=== PATIENT | male | born 1940 | race Caucasian/White ===

== ENCOUNTER 2021-12-13 09:47 | Emergency (ER) | payer MEDICAID, OTHER ==
[~2021-12-13] VITALS: Ht 175.3 cm; Wt 88.6 kg
[~2021-12-13 09:47] MED LIST: AMLO1TAB25 PO; BUSP5TA PO; COLA100C5 PO; ECOT81TA5 PO; ELIQ2.5T PO; ELIQ5TAB PO; FAMO20TA5 PO; FINA5TAB2 PO; FLUT1BLS5 INH; HYDR-3910 PO; LOSA100T45 PO; MECL-86 PO; METO1TAB33 PO; MIRA1POW3 PO; OXYC1TAB23 PO; REFR0.5D8 OU; ROSU40TA4 PO; SENN18TA PO; SPIR50TA4 PO; TAMS1CAP17 PO; TOVI4TAB PO; VITMTA PO; ZETI10TA16 PO
[2021-12-13] MEDS ORDERED: NS 500 ML IV ONE (10:20)
[2021-12-13 11:52] LABS: BASO % 0.3 % (0.0-1.0); EOS # 0.2 10^3/uL (0.0-0.5); EOS % 2.5 % (0.0-3.0); HEMATOCRIT 42.3 % (42.0-52.0); HEMOGLOBIN 12.6 g/dl (13.5-17.5); LYMPH # 0.9 10^3/uL (1.5-5.0); LYMPH % 14.2 % (24.0-44.0); MEAN CORPUSCULAR HEMOGLOBIN 26.6 pg (27.0-33.0); MEAN CORPUSCULAR HGB CONC 29.8 g/dl (32.0-36.5); MEAN CORPUSCULAR VOLUME 89.2 fl (80.0-96.0); MONO # 0.4 10^3/uL (0.0-0.8); MONO % 6.9 % (2.0-8.0); NEUTROPHILS # 4.8 10^3/uL (1.5-8.5); NEUTROPHILS % 75.8 % (36.0-66.0); PLATELET COUNT, AUTOMATED 199 10^3/uL (150-450); RED BLOOD COUNT 4.74 10^6/uL (4.30-6.10); WHITE BLOOD COUNT 6.4 10^3/uL (4.0-10.0)
[2021-12-13 12:05] LABS: INR 1.21; PROTHROMBIN TIME 15.5 SECONDS (12.5-14.5)
[2021-12-13 12:06] LABS: PARTIAL THROMBOPLASTIN TIME 42.2 SECONDS (24.8-34.2)
[2021-12-13] MEDS ORDERED: DOXYCYCLINE HYCLATE 100MG TABLET PO ONE (12:35)
[2021-12-13] MEDS ORDERED: DOXY-443 PO (13:30)
[2021-12-13 14:57] VITALS: BP 135/81
== END 2021-12-13 14:59 | disposition home or self-care (01) ==
LOC: M ED 09:47
DX: T81.41XA Infection following a procedure, superficial incisional surgical site, initial encounter (principal); L03.116 Cellulitis of left lower limb; Z88.2 Allergy status to sulfonamides; Z88.6 Allergy status to analgesic agent; Z79.01 Long term (current) use of anticoagulants; Z79.82 Long term (current) use of aspirin; Z79.899 Other long term (current) drug therapy

== ENCOUNTER 2022-06-07 10:09 | Emergency (ER) | payer MEDICARE, MEDICAID ==
[~2022-06-07] VITALS: Ht 175.3 cm; Wt 86.5 kg
[~2022-06-07 10:09] MED LIST changes: +DOXY-443 PO; -LOSA100T45 PO; +LOSA100T46 PO
[2022-06-07] MEDS ORDERED: ACET500T15 PO (11:44)
[2022-06-07] MEDS ORDERED: LOSA50TA28 PO (11:44)
[2022-06-07] MEDS ORDERED: ATOR80TA59 PO (11:44)
[2022-06-07] MEDS ORDERED: VENTAER INH (11:44)
[2022-06-07] MEDS ORDERED: RA S0.65 NARES (11:44)
[2022-06-07] MEDS ORDERED: METO200T28 PO (11:44)
[2022-06-07] MEDS ORDERED: ALBU2.5V10 INH (11:44)
[2022-06-07] MEDS ORDERED: CLON-412 PO (11:44)
[2022-06-07] MEDS ORDERED: ATOR40TA75 PO (11:44)
[2022-06-07] MEDS ORDERED: XARE15TA PO (11:44)
[2022-06-07] MEDS ORDERED: COMBAER6 INH (11:44)
[2022-06-07] MEDS ORDERED: HOME MED LIST COMPLETE! XX SCH (11:45)
[2022-06-07] MEDS ORDERED: ACETAMINOPHEN TAB 650MG DOSE (2X325MG) PO ONE (12:10)
[2022-06-07 14:02] VITALS: BP 159/93
== END 2022-06-07 14:15 | disposition home or self-care (01) ==
LOC: M ED 10:09 → EDBD 10:09 → M ED 14:15
DX: S60.221A Contusion of right hand, initial encounter (principal); I10 Essential (primary) hypertension; J44.9 Chronic obstructive pulmonary disease, unspecified; F41.9 Anxiety disorder, unspecified; F07.9 Unspecified personality and behavioral disorder due to known physiological condition; Z86.79 Personal history of other diseases of the circulatory system; Z86.718 Personal history of other venous thrombosis and embolism; Z87.891 Personal history of nicotine dependence; Z88.2 Allergy status to sulfonamides; Z88.5 Allergy status to narcotic agent; Z79.01 Long term (current) use of anticoagulants; Z79.52 Long term (current) use of systemic steroids; Z79.810 Long term (current) use of selective estrogen receptor modulators (SERMs); Z79.899 Other long term (current) drug therapy

== ENCOUNTER 2022-06-13 07:32 | Emergency (ER) | payer MEDICARE, MEDICAID ==
[~2022-06-13] VITALS: Ht 175.3 cm; Wt 87.9 kg
[~2022-06-13 07:32] MED LIST changes: +ACET500T15 PO; +ALBU2.5V10 INH; +ATOR40TA75 PO; +ATOR80TA59 PO; +CLON-412 PO; +COMBAER6 INH; +LOSA50TA28 PO; +METO200T28 PO; +RA S0.65 NARES; +VENTAER INH; +XARE15TA PO
[2022-06-13] MEDS ORDERED: cloNIDine 0.1MG TABLET PO ONE (09:25)
[2022-06-13] MEDS ORDERED: LOSARTAN 50MG TABLET PO ONE (09:25)
[2022-06-13] MEDS ORDERED: METOPROLOL SUCC (TopROL XL) 100MG *XL* TAB PO ONE (09:40)
[2022-06-13 10:03] VITALS: BP 213/110
[2022-06-13 10:30] VITALS: BP 188/95
== END 2022-06-13 10:40 | disposition home or self-care (01) ==
LOC: M ED 07:32
DX: S80.11XA Contusion of right lower leg, initial encounter (principal); I10 Essential (primary) hypertension; J44.9 Chronic obstructive pulmonary disease, unspecified; Z86.79 Personal history of other diseases of the circulatory system; Z87.891 Personal history of nicotine dependence; Z86.718 Personal history of other venous thrombosis and embolism; Z88.2 Allergy status to sulfonamides; Z88.5 Allergy status to narcotic agent; Z79.52 Long term (current) use of systemic steroids; Z79.811 Long term (current) use of aromatase inhibitors; Z79.810 Long term (current) use of selective estrogen receptor modulators (SERMs); Z79.82 Long term (current) use of aspirin; Z79.899 Other long term (current) drug therapy

== ENCOUNTER 2023-02-03 09:39 | Outpatient (RCR) | payer MEDICARE, MEDICAID ==
[~2023-02-03 09:39] MED LIST changes: +EZET10TA58 PO; +SENN-111 PO; -SENN18TA PO; -ZETI10TA16 PO
== END 2023-02-05 ==
LOC: M ST 09:39 → M OT 09:39
PROVIDERS: ATTEND Family Medicine
DX: I63.9 Cerebral infarction, unspecified (principal); R47.1 Dysarthria and anarthria

== ENCOUNTER 2023-03-03 12:56 | Outpatient (RCR) | payer MEDICARE, MEDICAID | END 2023-03-08 | LOC: M OT 12:56 | PROVIDERS: ATTEND Family Medicine | DX: I63.9 Cerebral infarction, unspecified (principal); R47.1 Dysarthria and anarthria ==

== ENCOUNTER 2023-04-04 12:23 | Outpatient (RCR) | payer MEDICARE, MEDICAID ==
[~2023-04-04 12:23] MED LIST changes: -HYDR-3910 PO; +HYDR25TA87 PO; -MIRA1POW3 PO; +MIRA33506 PO
== END 2023-04-06 ==
LOC: M ST 12:23
PROVIDERS: ATTEND Family Medicine
DX: I69.320 Aphasia following cerebral infarction (principal)

== ENCOUNTER 2023-04-11 10:25 | Outpatient (RCR) | payer MEDICARE, MEDICAID | END 2023-05-07 | LOC: M ST 10:25 | PROVIDERS: ATTEND Family Medicine | DX: I63.9 Cerebral infarction, unspecified (principal); I69.320 Aphasia following cerebral infarction ==

== ENCOUNTER → 2023-07-04 | Outpatient (CLI) | payer MEDICARE, MEDICAID ==
[~2023-07-04] MED LIST changes: +DOXY-323 PO; -DOXY-443 PO; +LIDOCAINE 1% MDV 20ML VIAL As Ordered ONE; +METO200T15 PO; -METO200T28 PO; -ROSU40TA4 PO; +ROSU40TA63 PO
[2023-07-04 13:05] VITALS: TEMP 99.4
[2023-07-04 13:37] VITALS: BP 145/85; O2SAT 95
== END ==
LOC: M IRPRO 12:41
PROVIDERS: ATTEND Otolaryngology
DX: R22.1 Localized swelling, mass and lump, neck (principal)

== ENCOUNTER 2023-08-17 04:38 | Emergency (ER) | payer MEDICARE, MEDICAID ==
[~2023-08-17] VITALS: Ht 175.3 cm; Wt 96.4 kg
[~2023-08-17 04:38] MED LIST changes: -LIDOCAINE 1% MDV 20ML VIAL As Ordered ONE
[2023-08-17 05:55] LABS: BASO % 0.3 % (0.0-1.0); EOS # 0.2 10^3/uL (0.0-0.5); EOS % 3.3 % (0.0-3.0); HEMATOCRIT 41.4 % (42.0-52.0); HEMOGLOBIN 13.1 g/dl (13.5-17.5); LYMPH # 1.3 10^3/uL (1.5-5.0); LYMPH % 19.7 % (24.0-44.0); MEAN CORPUSCULAR HEMOGLOBIN 30.8 pg (27.0-33.0); MEAN CORPUSCULAR HGB CONC 31.6 g/dl (32.0-36.5); MEAN CORPUSCULAR VOLUME 97.2 fl (80.0-96.0); MONO # 0.7 10^3/uL (0.0-0.8); MONO % 10.4 % (2.0-8.0); NEUTROPHILS # 4.2 10^3/uL (1.5-8.5); NEUTROPHILS % 65.7 % (36.0-66.0); PLATELET COUNT, AUTOMATED 169 10^3/uL (150-450); RED BLOOD COUNT 4.26 10^6/uL (4.30-6.10); WHITE BLOOD COUNT 6.3 10^3/uL (4.0-10.0)
[2023-08-17 06:13] LABS: ALBUMIN 3.8 G/DL (3.2-5.2); BILIRUBIN,DIRECT 0.3 MG/DL (<0.4); BILIRUBIN,TOTAL 0.9 MG/DL (0.3-1.2); CALCIUM LEVEL 9.3 MG/DL (8.3-10.6); CREATININE FOR GFR 2.02 MG/DL (0.70-1.30); GLOMERULAR FILTRATION RATE 33.7 (>35); POTASSIUM SERUM 5.7 MMOL/L (3.5-5.1); TOTAL PROTEIN 6.5 G/DL (5.7-8.2)
[2023-08-17] MEDS: ACETAMINOPHEN 325 MG TAB PO ONE (06:55)
[2023-08-17] MEDS: NS 1,000 ML IV ONE (06:55)
[2023-08-17] MEDS: PATIROMER SORBITEX CALCIUM 8.4 GM POWDER PACKET (VELTASSA) PO ONE (06:55)
[2023-08-17 11:04] VITALS: BP 140/78; TEMP 96; O2SAT 98
== END 2023-08-17 11:06 | disposition home or self-care (01) ==
LOC: M ED 04:38
DX: R10.9 Unspecified abdominal pain (principal); M54.50 Low back pain, unspecified; N28.9 Disorder of kidney and ureter, unspecified; E87.5 Hyperkalemia; I49.1 Atrial premature depolarization; I10 Essential (primary) hypertension; J44.9 Chronic obstructive pulmonary disease, unspecified; Z87.442 Personal history of urinary calculi; Z86.711 Personal history of pulmonary embolism; Z86.73 Personal history of transient ischemic attack (TIA), and cerebral infarction without residual deficits; Z86.79 Personal history of other diseases of the circulatory system; Z88.2 Allergy status to sulfonamides; Z88.5 Allergy status to narcotic agent; Z79.52 Long term (current) use of systemic steroids; Z79.811 Long term (current) use of aromatase inhibitors; Z79.899 Other long term (current) drug therapy

== ENCOUNTER → 2023-12-04 | Outpatient (CLI) | payer MEDICARE, MEDICAID ==
[~2023-12-04] MED LIST changes: -DOXY-323 PO; +DOXY-441 PO; -ROSU40TA63 PO; +ROSU40TA81 PO; -SENN-111 PO; +SENN-165 PO
== END ==
LOC: M RAD 15:09
PROVIDERS: ATTEND Otolaryngology
DX: R22.1 Localized swelling, mass and lump, neck (principal)

== ENCOUNTER → 2023-12-27 | Outpatient (REF) | payer MEDICARE, MEDICAID ==
[2023-12-27 18:25] LABS: APPEARANCE, URINE HAZY (CLEAR); BACTERIA, URINE AUTO NEGATIVE (NEGATIVE); BILIRUBIN, URINE AUTO NEGATIVE (NEGATIVE); BLOOD, URINE BLOOD NEGATIVE (NEGATIVE); COLOR, URINE AMBER (YELLOW); GLUCOSE, URINE (UA) AUTO NEGATIVE (NEGATIVE); KETONE, URINE AUTO NEGATIVE (NEGATIVE); LEUKOCYTE ESTERASE, URINE AUTO NEGATIVE (NEGATIVE); MUCUS, URINE SMALL (NEGATIVE); NITRITE, URINE AUTO NEGATIVE (NEGATIVE); PROTEIN, URINE AUTO 1+ mg/dL (NEGATIVE); RBC, URINE AUTO 0 /HPF (0-3); SPECIFIC GRAVITY URINE AUTO 1.023 (1.002-1.035); SQUAMOUS EPITHELIAL CELL UR AU 0 /HPF (0-6); UROBILINOGEN, URINE AUTO 0.2 mg/dL (0.0-2.0); WBC, URINE AUTO 1 /HPF (0-3)
== END ==
LOC: M SMT 17:13
PROVIDERS: ATTEND Physician Assistant
DX: N39.41 Urge incontinence (principal)

== ENCOUNTER 2024-01-10 15:44 | Observation (INO) | payer MEDICARE, MEDICAID ==
[~2024-01-10] VITALS: Ht 175.3 cm; Wt 97.9 kg
[2024-01-10 16:01] VITALS: BP 141/75; O2SAT 93
[2024-01-10] MEDS ORDERED: ISOVUE-370 76% 100ML VIAL As Ordered ONE (16:12)
[2024-01-10 16:27] LABS: BASO % 0.4 % (0.0-1.0); EOS # 0.1 10^3/uL (0.0-0.5); EOS % 1.9 % (0.0-3.0); HEMATOCRIT 44.5 % (42.0-52.0); HEMOGLOBIN 13.6 g/dl (13.5-17.5); LYMPH # 0.9 10^3/uL (1.5-5.0); LYMPH % 12.9 % (24.0-44.0); MEAN CORPUSCULAR HEMOGLOBIN 28.2 pg (27.0-33.0); MEAN CORPUSCULAR HGB CONC 30.6 g/dl (32.0-36.5); MEAN CORPUSCULAR VOLUME 92.1 fl (80.0-96.0); MONO # 0.6 10^3/uL (0.0-0.8); MONO % 7.9 % (2.0-8.0); NEUTROPHILS # 5.5 10^3/uL (1.5-8.5); NEUTROPHILS % 76.3 % (36.0-66.0); PLATELET COUNT, AUTOMATED 150 10^3/uL (150-450); RED BLOOD COUNT 4.83 10^6/uL (4.30-6.10); WHITE BLOOD COUNT 7.3 10^3/uL (4.0-10.0)
[2024-01-10 16:38] LABS: INR 1.66; PARTIAL THROMBOPLASTIN TIME 41.1 SECONDS (24.8-34.2); PROTHROMBIN TIME 19.8 SECONDS (12.5-14.5)
[2024-01-10 16:51] LABS: CALCIUM LEVEL 9.4 MG/DL (8.3-10.6); CK-MB VALUE MASS 1.7 NG/ML (<3.6); CREATININE FOR GFR 1.66 MG/DL (0.70-1.30); GLOMERULAR FILTRATION RATE 42.2 (>35); MB/CK RELATIVE INDEX 2.69 (< OR =4); POTASSIUM SERUM 4.8 MMOL/L (3.5-5.1)
[2024-01-10] MEDS ORDERED: CELE10TA PO (17:25)
[2024-01-10] MEDS ORDERED: LABE200T5 PO (17:27)
[2024-01-10] MEDS ORDERED: LORA-243 PO (17:27)
[2024-01-10] MEDS ORDERED: GABA-1171 PO (17:27)
[2024-01-10] MEDS ORDERED: SYST1SOL OU (17:32)
[2024-01-10] MEDS ORDERED: STROTAB3 PO (17:32)
[2024-01-10] MEDS ORDERED: VALS1TAB68 PO (17:35)
[2024-01-10] MEDS ORDERED: SOLI10TA PO (17:35)
[2024-01-10] MEDS ORDERED: SPIR12.9 INH (17:35)
[2024-01-10] MEDS ORDERED: SYMB16INH INH (17:35)
[2024-01-10] MEDS ORDERED: HOME MED LIST COMPLETE! XX SCH (17:40)
[2024-01-10] MEDS ORDERED: SODIUM CHLORIDE NASAL 0.65% SPRAY BTL (OCEAN) PRN (17:50)
[2024-01-10] MEDS ORDERED: ALBUTEROL SULFATE 2.5MG/0.5ML INH NEB SOLN INH PRN (17:50)
[2024-01-10] MEDS ORDERED: COMBIVENT RESPIMAT 100-20MCG INHALER 4GM INH PRN (17:50)
[2024-01-10] MEDS ORDERED: ACETAMINOPHEN 500 MG TAB PO PRN (17:50)
[2024-01-10] MEDS: SYMBICORT 160/4.5MCG INHALER 6GM INH SCH (20:00)
[2024-01-10 20:55] VITALS: BP 162/98; TEMP 97.9; O2SAT 95
[2024-01-10] MEDS: GABAPENTIN 100 MG CAP PO SCH (21:27)
[2024-01-10] MEDS: ATORVASTATIN 20 MG TAB PO SCH (21:27)
[2024-01-10] MEDS: LORATADINE 10 MG TAB PO SCH (21:27)
[2024-01-10] MEDS: FAMOTIDINE 20 MG TAB PO SCH (21:27)
[2024-01-10] MEDS: EZETIMIBE 10MG TABLET (ZETIA) PO SCH (21:27)
[2024-01-10 23:47] VITALS: BP 147/69; TEMP 97.6; O2SAT 92
[2024-01-10] MEDS: POLYVINYL ALCOHOL OPHTH SOLN 15ML (LIQUITEARS) OU SCH (23:49)
[2024-01-11 04:02] VITALS: BP 136/70; TEMP 97.2; O2SAT 92
[2024-01-11 06:34] LABS: CHOLESTEROL RISK RATIO 3.42 (<5); HDL CHOLESTEROL 30.4 MG/DL (>40); LDL CHOLESTEROL 53.4 MG/DL (<100); NON-HDL-C 73.6 MG/DL
[2024-01-11 06:43] LABS: HEMOGLOBIN A1c 5.7 % (4.0-6.0)
[2024-01-11 07:01] LABS: CALCIUM LEVEL 8.9 MG/DL (8.3-10.6); CREATININE FOR GFR 1.55 MG/DL (0.70-1.30); GLOMERULAR FILTRATION RATE 45.7 (>35); POTASSIUM SERUM 4.3 MMOL/L (3.5-5.1)
[2024-01-11 07:21] VITALS: BP 154/88; TEMP 98.8; O2SAT 93
[2024-01-11 09:00] VITALS: BP 124/73
[2024-01-11] MEDS: cloNIDine 0.1MG TABLET PO SCH (09:00)
[2024-01-11] MEDS: LABETALOL 200 MG TAB PO SCH (09:00)
[2024-01-11] MEDS: CitaloPRAM (CeleXA) 10 MG TABLET PO SCH (09:20)
[2024-01-11] MEDS: FINASTERIDE 5MG TAB PO SCH (09:20)
[2024-01-11] MEDS: RIVAROXABAN 15MG TAB (XARELTO) PO SCH (09:20)
[2024-01-11] MEDS: ASPIRIN 81MG ENTERIC TABLET PO SCH (09:21)
[2024-01-11] MEDS ORDERED: NORV5TAB PO (09:56)
[2024-01-11] MEDS ORDERED: PRAD150C6 PO (09:56)
[2024-01-11] MEDS ORDERED: CLON-412 PO (09:56)
[2024-01-11 12:00] VITALS: TEMP 98.8
== END 2024-01-11 12:58 | disposition home health service (06) ==
LOC: M ED 15:44 → EDBD 15:44 → M ED INP 15:45 → M PCU 20:52
PROVIDERS: ADMIT Internal Medicine; ATTEND Internal Medicine
DX: I63.9 Cerebral infarction, unspecified (principal); I10 Essential (primary) hypertension; R00.1 Bradycardia, unspecified; Z79.01 Long term (current) use of anticoagulants; Z79.82 Long term (current) use of aspirin; Z79.899 Other long term (current) drug therapy; Z88.2 Allergy status to sulfonamides; Z88.5 Allergy status to narcotic agent
CPT/HCPCS: 36415; 70450; 70496; 70498; 70551; 71045; 80047; 80048; 80061; 81001; 82550; 82553; 83036; 84484; 85025; 85610; 85730; 93005; 93041; 94640; 94760; 97161; 99285; G0378; Q9967

== ENCOUNTER 2024-01-13 21:38 | Emergency (ER) | payer MEDICARE, MEDICAID ==
[~2024-01-13] VITALS: Ht 175.3 cm; Wt 97.0 kg
[~2024-01-13 21:38] MED LIST changes: +CELE10TA PO; +GABA-1171 PO; +LABE200T5 PO; +LORA-243 PO; +NORV5TAB PO; +PRAD150C6 PO; +SOLI10TA PO; +SPIR12.9 INH; +STROTAB3 PO; +SYMB16INH INH; +SYST1SOL OU; +VALS1TAB68 PO
[2024-01-13] MEDS: BENZONATATE 100MG CAPSULE PO ONE (22:10)
[2024-01-13 22:14] VITALS: TEMP 97.4
[2024-01-13 23:06] LABS: BASO % 0.2 % (0.0-1.0); EOS # 0.2 10^3/uL (0.0-0.5); EOS % 1.7 % (0.0-3.0); HEMATOCRIT 44.1 % (42.0-52.0); HEMOGLOBIN 13.6 g/dl (13.5-17.5); LYMPH # 0.9 10^3/uL (1.5-5.0); LYMPH % 9.6 % (24.0-44.0); MEAN CORPUSCULAR HEMOGLOBIN 28.7 pg (27.0-33.0); MEAN CORPUSCULAR HGB CONC 30.8 g/dl (32.0-36.5); MONO # 0.7 10^3/uL (0.0-0.8); MONO % 7.8 % (2.0-8.0); NEUTROPHILS # 7.5 10^3/uL (1.5-8.5); NEUTROPHILS % 80.4 % (36.0-66.0); PLATELET COUNT, AUTOMATED 129 10^3/uL (150-450); RED BLOOD COUNT 4.74 10^6/uL (4.30-6.10); WHITE BLOOD COUNT 9.3 10^3/uL (4.0-10.0)
[2024-01-13 23:30] LABS: CALCIUM LEVEL 9.1 MG/DL (8.3-10.6); CREATININE FOR GFR 1.46 MG/DL (0.70-1.30); POTASSIUM SERUM 4.6 MMOL/L (3.5-5.1)
[2024-01-14] MEDS ORDERED: PRED20TA PO (00:31)
[2024-01-14] MEDS ORDERED: DOXY-441 PO (00:31)
[2024-01-14] MEDS ORDERED: BENZ200C70 PO (00:31)
[2024-01-14 01:00] VITALS: BP 149/82; O2SAT 93
== END 2024-01-14 01:05 | disposition home or self-care (01) ==
LOC: EDBD 21:38 → M ED 21:38
DX: J44.1 Chronic obstructive pulmonary disease with (acute) exacerbation (principal); R05.9 Cough, unspecified; I10 Essential (primary) hypertension; E78.5 Hyperlipidemia, unspecified; N40.0 Benign prostatic hyperplasia without lower urinary tract symptoms; K21.9 Gastro-esophageal reflux disease without esophagitis; Z86.79 Personal history of other diseases of the circulatory system; Z88.2 Allergy status to sulfonamides; Z88.5 Allergy status to narcotic agent; Z88.8 Allergy status to other drugs, medicaments and biological substances; Z86.718 Personal history of other venous thrombosis and embolism; Z79.52 Long term (current) use of systemic steroids; Z79.82 Long term (current) use of aspirin; Z79.02 Long term (current) use of antithrombotics/antiplatelets; Z79.899 Other long term (current) drug therapy
CPT/HCPCS: 71046; 80048; 83880; 85025; 87486; 87581; 87633; 87798; 93041; 96374; 99284; J1100

== ENCOUNTER 2024-03-08 22:25 | Inpatient (IN) | payer MEDICARE, MEDICAID ==
[~2024-03-08] VITALS: Ht 175.3 cm; Wt 100.0 kg
[~2024-03-08 22:25] MED LIST changes: +BENZ200C70 PO; +PRED20TA PO
[2024-03-08 23:08] LABS: BASO % 0.3 % (0.0-1.0); EOS # 0.1 10^3/uL (0.0-0.5); EOS % 1.1 % (0.0-3.0); HEMATOCRIT 48.2 % (42.0-52.0); HEMOGLOBIN 15.6 g/dl (13.5-17.5); LYMPH # 0.7 10^3/uL (1.5-5.0); LYMPH % 6.7 % (24.0-44.0); MEAN CORPUSCULAR HEMOGLOBIN 29.1 pg (27.0-33.0); MEAN CORPUSCULAR HGB CONC 32.4 g/dl (32.0-36.5); MEAN CORPUSCULAR VOLUME 89.8 fl (80.0-96.0); MONO # 0.7 10^3/uL (0.0-0.8); MONO % 5.9 % (2.0-8.0); NEUTROPHILS # 9.4 10^3/uL (1.5-8.5); NEUTROPHILS % 85.4 % (36.0-66.0); PLATELET COUNT, AUTOMATED 163 10^3/uL (150-450); RED BLOOD COUNT 5.37 10^6/uL (4.30-6.10)
[2024-03-08] MEDS: fentaNYL 100 MCG/2 ML INJECTION IV ONE (23:22)
[2024-03-08 23:32] LABS: CALCIUM LEVEL 9.6 MG/DL (8.3-10.6); CREATININE FOR GFR 1.4 MG/DL (0.70-1.30); GLOMERULAR FILTRATION RATE 51.4 (>35); POTASSIUM SERUM 4.6 MMOL/L (3.5-5.1)
[2024-03-08] MEDS ORDERED: MOM 30ML SUSPENSION UDC PO PRN (23:50)
[2024-03-08] MEDS ORDERED: ACETAMINOPHEN 325 MG TAB PO PRN (23:50)
[2024-03-09] MEDS: ACETAMINOPHEN *IV* 1,000 MG in IV 1 EA IV ONE (00:06)
[2024-03-09 00:43] LABS: INR 1.25; PARTIAL THROMBOPLASTIN TIME 33.9 SECONDS (24.8-34.2)
[2024-03-09] MEDS: fentaNYL 100 MCG/2 ML INJECTION IV ONE (01:03)
[2024-03-09] MEDS: ANEXSIA, NORCO 7.5MG/325MG TABLET(HYDROCODONE/APAP) PO STA (01:04)
[2024-03-09] MEDS ORDERED: IPRA2IN INH (01:32)
[2024-03-09] MEDS ORDERED: MULT-6 PO (01:32)
[2024-03-09] MEDS ORDERED: VESI10TA2 PO (01:32)
[2024-03-09] MEDS ORDERED: CLONI1TA PO (01:32)
[2024-03-09] MEDS ORDERED: ELIQ2.5T PO (01:32)
[2024-03-09] MEDS ORDERED: AMLO1TAB24 PO (01:32)
[2024-03-09] MEDS ORDERED: HOME MED LIST COMPLETE! XX SCH (01:35)
[2024-03-09] MEDS: HYDROMORPHONE HCL 0.5 MG/ 0.5 ML SYRINGE IV PRN ×2 (02:56→12:47)
[2024-03-09 07:11] LABS: HEMATOCRIT 47.1 % (42.0-52.0); HEMOGLOBIN 15.1 g/dl (13.5-17.5); MEAN CORPUSCULAR HEMOGLOBIN 28.7 pg (27.0-33.0); MEAN CORPUSCULAR HGB CONC 32.1 g/dl (32.0-36.5); MEAN CORPUSCULAR VOLUME 89.5 fl (80.0-96.0); PLATELET COUNT, AUTOMATED 156 10^3/uL (150-450); RED BLOOD COUNT 5.26 10^6/uL (4.30-6.10); WHITE BLOOD COUNT 10.6 10^3/uL (4.0-10.0)
[2024-03-09 07:27] LABS: ALBUMIN 3.8 G/DL (3.2-5.2); BILIRUBIN,TOTAL 1.3 MG/DL (0.3-1.2); CALCIUM LEVEL 9.3 MG/DL (8.3-10.6); CREATININE FOR GFR 1.23 MG/DL (0.70-1.30); GLOMERULAR FILTRATION RATE 59.7 (>35); POTASSIUM SERUM 4.6 MMOL/L (3.5-5.1); TOTAL PROTEIN 6.7 G/DL (5.7-8.2)
[2024-03-09] MEDS: SOLIFENACIN 5 MG TAB PO SCH (09:00)
[2024-03-09] MEDS: DOCUSATE SODIUM 100MG CAPSULE PO SCH (09:00)
[2024-03-09] MEDS: fentaNYL 100 MCG/2 ML INJECTION IV PRN (09:22)
[2024-03-09] MEDS: LABETALOL 100MG/20ML VIAL IV STA (09:23)
[2024-03-09] MEDS ORDERED: PERCOCET 5MG/325MG TAB PO PRN (09:55)
[2024-03-09] MEDS ORDERED: MORPHINE 2 MG/ML 1ML VIAL IV PRN (09:55)
[2024-03-09] MEDS: FINASTERIDE 5MG TAB PO SCH (12:34)
[2024-03-09] MEDS: CitaloPRAM (CeleXA) 10 MG TABLET PO SCH (12:34)
[2024-03-09] MEDS: cloNIDine 0.1MG TABLET PO SCH (12:35)
[2024-03-09] MEDS: FAMOTIDINE 20 MG TAB PO SCH (12:43)
[2024-03-09] MEDS: ASPIRIN 81MG ENTERIC TABLET PO SCH (12:44)
[2024-03-09] MEDS: ENOXAPARIN 100MG/1ML SYRINGE (J1650 PER 10MG) SC ONE (12:45)
[2024-03-09] MEDS: LR 1,000 ML IV SCH (12:46)
[2024-03-09] MEDS: IPRATROPIUM 0.5MG/ALBUTEROL 2.5MG INH SOL UD 3ML (DUONEB) NEB SCH (14:04)
[2024-03-09] MEDS: SYMBICORT 160/4.5MCG INHALER 6GM INH SCH (14:06)
[2024-03-09] MEDS: LABETALOL 100MG/20ML VIAL IV PRN (15:03)
[2024-03-09] MEDS: **hydrALAZINE** 50 MG TAB PO ONE (16:50)
[2024-03-09] MEDS: LOSARTAN 50MG TABLET PO ONE (16:51)
[2024-03-09] MEDS: ACETAMINOPHEN 500 MG TAB PO SCH (16:52)
[2024-03-09] MEDS: EZETIMIBE 10MG TABLET (ZETIA) PO SCH (20:27)
[2024-03-09] MEDS: **hydrALAZINE** 50 MG TAB PO SCH (20:28)
[2024-03-09] MEDS: ATORVASTATIN 20 MG TAB PO SCH (20:28)
[2024-03-09] MEDS: LOSARTAN 50MG TABLET PO SCH (20:29)
[2024-03-09] MEDS: LORATADINE 10 MG TAB PO SCH (20:29)
[2024-03-09] MEDS: oxyCODONE 5MG TAB PO PRN (20:29)
[2024-03-09] MEDS: GABAPENTIN 100 MG CAP PO SCH (20:30)
[2024-03-09 21:52] VITALS: BP 142/85; TEMP 97.3; O2SAT 92
[2024-03-09 22:00] VITALS: O2SAT 92
[2024-03-09] MEDS ORDERED: HEPARIN SOD (PORCINE) 5000UNITS/ML 1ML VIAL/SYRINGE SC SCH (22:00)
[2024-03-09 23:00] VITALS: O2SAT 92
[2024-03-09 23:35] VITALS: BP 178/104; TEMP 97.3; O2SAT 91
[2024-03-10] VITALS (23 sets, daily range): BP systolic 97–146; BP diastolic 60–105; TEMP 96.8–98; O2SAT 89–96
[2024-03-10] MEDS: BISACODYL 10MG SUPP PR ONE (07:49)
[2024-03-10 08:02] LABS: BASO % 0.3 % (0.0-1.0); EOS # 0.1 10^3/uL (0.0-0.5); EOS % 0.5 % (0.0-3.0); HEMATOCRIT 49.2 % (42.0-52.0); HEMOGLOBIN 15.6 g/dl (13.5-17.5); LYMPH % 8.4 % (24.0-44.0); MEAN CORPUSCULAR HEMOGLOBIN 28.9 pg (27.0-33.0); MEAN CORPUSCULAR HGB CONC 31.7 g/dl (32.0-36.5); MEAN CORPUSCULAR VOLUME 91.3 fl (80.0-96.0); MONO % 8.9 % (2.0-8.0); NEUTROPHILS # 9.2 10^3/uL (1.5-8.5); NEUTROPHILS % 81.5 % (36.0-66.0); PLATELET COUNT, AUTOMATED 181 10^3/uL (150-450); RED BLOOD COUNT 5.39 10^6/uL (4.30-6.10); WHITE BLOOD COUNT 11.3 10^3/uL (4.0-10.0)
[2024-03-10] MEDS: TIOTROPIUM INHALER/CAPSULE (SPIRIVA) INH SCH (08:15)
[2024-03-10 08:35] LABS: CALCIUM LEVEL 9.4 MG/DL (8.3-10.6); CREATININE FOR GFR 1.47 MG/DL (0.70-1.30); GLOMERULAR FILTRATION RATE 48.6 (>35); POTASSIUM SERUM 4.7 MMOL/L (3.5-5.1)
[2024-03-10] MEDS: PANTOPRAZOLE 40MG TAB (PROTONIX) PO SCH (09:55)
[2024-03-10] MEDS: NS (Normal Saline) 0.9% 1,000 ML IV SCH (10:45)
[2024-03-10] MEDS ORDERED: ONDANSETRON 4MG 2ML VIAL As Ordered ONE (13:20)
[2024-03-10] MEDS ORDERED: MIDAZOLAM INJ 2MG/2ML VIAL As Ordered ONE (13:20)
[2024-03-10] MEDS ORDERED: KETAMINE HCL 200MG/20ML VIAL As Ordered ONE (13:20)
[2024-03-10] MEDS ORDERED: LIDOCAINE 2% 100MG/5ML SDV (FOR ANES.) As Ordered ONE (13:20)
[2024-03-10] MEDS ORDERED: PHENYLEPHRINE 10MG/ML 1ML VIAL As Ordered ONE (13:20)
[2024-03-10] MEDS ORDERED: propofoL 200 MG/20 ML VIAL As Ordered ONE (13:20)
[2024-03-10] MEDS ORDERED: ACETAMINOPHEN 1000MG/100ML IV BAG As Ordered ONE (13:20)
[2024-03-10] MEDS ORDERED: HYDROmorphone HCL 2MG/ML 1ML VIAL As Ordered ONE (14:19)
[2024-03-10] MEDS ORDERED: fentaNYL 100 MCG/2 ML INJECTION As Ordered ONE (14:19)
[2024-03-10] MEDS ORDERED: ROCURONIUM BROMIDE 50MG/5ML VIAL As Ordered ONE (14:23)
[2024-03-10] MEDS ORDERED: ETOMIDATE INJ 20MG/10ML VIAL As Ordered ONE (14:38)
[2024-03-10] MEDS: ceFAZolin 2 GM/D5W 50 ML IV BAG As Ordered ONE (15:04)
[2024-03-10] MEDS: TRANEXAMIC ACID 100 MG/ML 10ML VIAL As Ordered ONE (15:40)
[2024-03-10] MEDS ORDERED: SUGAMMADEX SODIUM 500 MG/5 ML VIAL (BRIDION) As Ordered ONE (15:46)
[2024-03-10] MEDS: VANCOMYCIN 1000MG/20ML VIAL As Ordered ONE (16:45)
[2024-03-10] MEDS: BUPivacaine LIPOSOME/PF 266MG 20ML VIAL (13.3MG/ML)(EXPAREL) As Ordered ONE (19:07)
[2024-03-10] MEDS ORDERED: CALCIUM CHLORIDE 10% 1 GM/10 ML SYR As Ordered ONE (19:48)
[2024-03-10] MEDS ORDERED: NALBUPHINE HCL 10 MG/ML 1ML AMP IV PRN (20:00)
[2024-03-10] MEDS ORDERED: oxyCODONE 5MG TAB PO PRN (20:00)
[2024-03-10] MEDS ORDERED: HYDROMORPHONE HCL 0.5 MG/ 0.5 ML SYRINGE IV PRN (20:00)
[2024-03-10] MEDS ORDERED: fentaNYL 100 MCG/2 ML INJECTION IV PRN (20:00)
[2024-03-10] MEDS ORDERED: ONDANSETRON 4MG 2ML VIAL IV PRN (20:00)
[2024-03-10] MEDS: LR 1,000 ML IV SCH (22:21)
[2024-03-11] VITALS (17 sets, daily range): BP systolic 92–160; BP diastolic 55–76; TEMP 97–98.4; O2SAT 91–99
[2024-03-11 05:34] LABS: BASO % 0.2 % (0.0-1.0); HEMATOCRIT 41.3 % (42.0-52.0); LYMPH # 0.4 10^3/uL (1.5-5.0); LYMPH % 3.3 % (24.0-44.0); MEAN CORPUSCULAR HEMOGLOBIN 28.6 pg (27.0-33.0); MEAN CORPUSCULAR VOLUME 92.2 fl (80.0-96.0); NEUTROPHILS # 11.4 10^3/uL (1.5-8.5); NEUTROPHILS % 88.1 % (36.0-66.0); PLATELET COUNT, AUTOMATED 177 10^3/uL (150-450); RED BLOOD COUNT 4.48 10^6/uL (4.30-6.10); WHITE BLOOD COUNT 12.9 10^3/uL (4.0-10.0)
[2024-03-11 05:53] LABS: HEMOGLOBIN 12.8 g/dl (13.5-17.5)
[2024-03-11 06:03] LABS: CALCIUM LEVEL 9.2 MG/DL (8.3-10.6); CREATININE FOR GFR 1.77 MG/DL (0.70-1.30); GLOMERULAR FILTRATION RATE 39.2 (>35); POTASSIUM SERUM 5.2 MMOL/L (3.5-5.1)
[2024-03-11] MEDS: APIXABAN 2.5 MG TAB (ELIQUIS) PO SCH (09:00)
[2024-03-11] MEDS: PATIROMER SORBITEX CALCIUM 8.4 GM POWDER PACKET (VELTASSA) PO ONE (11:02)
[2024-03-11] MEDS: ceFAZolin SOD 2 GM in IV 1 EA IV SCH (11:02)
[2024-03-11] MEDS: NS (Normal Saline) 0.9% 1,000 ML IV SCH (12:47)
[2024-03-11] MEDS: ASPIRIN 81MG ENTERIC TABLET PO SCH (12:47)
[2024-03-12] VITALS (11 sets, daily range): BP systolic 124–155; BP diastolic 68–81; TEMP 97.2–98.5; O2SAT 85–95
[2024-03-12 05:32] LABS: BASO % 0.1 % (0.0-1.0); EOS # 0.1 10^3/uL (0.0-0.5); HEMATOCRIT 35.5 % (42.0-52.0); HEMOGLOBIN 11.2 g/dl (13.5-17.5); LYMPH # 0.7 10^3/uL (1.5-5.0); LYMPH % 9.5 % (24.0-44.0); MEAN CORPUSCULAR HEMOGLOBIN 28.9 pg (27.0-33.0); MEAN CORPUSCULAR HGB CONC 31.5 g/dl (32.0-36.5); MEAN CORPUSCULAR VOLUME 91.7 fl (80.0-96.0); MONO # 0.8 10^3/uL (0.0-0.8); NEUTROPHILS # 5.3 10^3/uL (1.5-8.5); NEUTROPHILS % 76.8 % (36.0-66.0); PLATELET COUNT, AUTOMATED 146 10^3/uL (150-450); RED BLOOD COUNT 3.87 10^6/uL (4.30-6.10); WHITE BLOOD COUNT 6.9 10^3/uL (4.0-10.0)
[2024-03-12 05:56] LABS: CALCIUM LEVEL 8.6 MG/DL (8.3-10.6); CREATININE FOR GFR 2.23 MG/DL (0.70-1.30); MAGNESIUM LEVEL 2.3 MG/DL (1.8-2.4); POTASSIUM SERUM 4.6 MMOL/L (3.5-5.1)
[2024-03-13 01:00] VITALS: O2SAT 96
[2024-03-13 04:00] VITALS: BP 140/80; TEMP 97.5; O2SAT 96
[2024-03-13 06:21] LABS: BASO % 0.3 % (0.0-1.0); EOS # 0.2 10^3/uL (0.0-0.5); EOS % 2.5 % (0.0-3.0); HEMATOCRIT 34.1 % (42.0-52.0); HEMOGLOBIN 10.6 g/dl (13.5-17.5); LYMPH # 0.6 10^3/uL (1.5-5.0); LYMPH % 9.6 % (24.0-44.0); MEAN CORPUSCULAR HGB CONC 31.1 g/dl (32.0-36.5); MEAN CORPUSCULAR VOLUME 93.2 fl (80.0-96.0); MONO # 0.7 10^3/uL (0.0-0.8); MONO % 11.3 % (2.0-8.0); NEUTROPHILS # 4.6 10^3/uL (1.5-8.5); NEUTROPHILS % 75.8 % (36.0-66.0); PLATELET COUNT, AUTOMATED 138 10^3/uL (150-450); RED BLOOD COUNT 3.66 10^6/uL (4.30-6.10)
[2024-03-13 06:39] LABS: CALCIUM LEVEL 8.5 MG/DL (8.3-10.6); CREATININE FOR GFR 1.32 MG/DL (0.70-1.30); POTASSIUM SERUM 4.6 MMOL/L (3.5-5.1)
[2024-03-13] MEDS ORDERED: oxyCODONE 5MG TAB PO PRN (12:00)
[2024-03-13 12:26] VITALS: BP 145/73; TEMP 98.5; O2SAT 94
[2024-03-13 14:15] VITALS: BP 135/81; TEMP 97.5; O2SAT 95
[2024-03-13 20:07] VITALS: BP 146/96; TEMP 97.5; O2SAT 97
[2024-03-13] MEDS: METOPROLOL TART 25 MG TABLET PO SCH (21:13)
[2024-03-14 04:00] VITALS: BP 138/98; TEMP 97.2; O2SAT 94
[2024-03-14 05:18] LABS: BASO % 0.3 % (0.0-1.0); EOS # 0.3 10^3/uL (0.0-0.5); EOS % 3.5 % (0.0-3.0); HEMATOCRIT 34.7 % (42.0-52.0); HEMOGLOBIN 10.6 g/dl (13.5-17.5); LYMPH # 0.6 10^3/uL (1.5-5.0); LYMPH % 8.7 % (24.0-44.0); MEAN CORPUSCULAR HEMOGLOBIN 28.4 pg (27.0-33.0); MEAN CORPUSCULAR HGB CONC 30.5 g/dl (32.0-36.5); MONO # 0.6 10^3/uL (0.0-0.8); MONO % 8.3 % (2.0-8.0); NEUTROPHILS # 5.7 10^3/uL (1.5-8.5); NEUTROPHILS % 78.8 % (36.0-66.0); PLATELET COUNT, AUTOMATED 158 10^3/uL (150-450); RED BLOOD COUNT 3.73 10^6/uL (4.30-6.10); WHITE BLOOD COUNT 7.2 10^3/uL (4.0-10.0)
[2024-03-14 05:55] VITALS: BP 164/104; TEMP 97.7; O2SAT 95
[2024-03-14] MEDS: **hydrALAZINE HCL** 25 MG TAB PO PRN (05:58)
[2024-03-14 06:16] LABS: BLOOD UREA NITROGEN 37 MG/DL (9-23); CARBON DIOXIDE LEVEL 30 MMOL/L (20-31); CHLORIDE LEVEL 110 MMOL/L (98-107); CREATININE FOR GFR 1.02 MG/DL (0.70-1.30); GLOMERULAR FILTRATION RATE > 60.0 (>35); GLUCOSE, FASTING 106 MG/DL (74-106); POTASSIUM SERUM 4.5 MMOL/L (3.5-5.1); SODIUM LEVEL 147 MMOL/L (136-145)
[2024-03-14 09:49] VITALS: BP 159/96
[2024-03-14] MEDS: TAMSULOSIN 0.4 MG CAP PO SCH (09:49)
[2024-03-14] MEDS ORDERED: VARIBAR PUDDING 40% w/v 230ML TUBE As Ordered ONE (10:47)
[2024-03-14] MEDS ORDERED: E-Z-PAQUE 96% w/w SUSP 176GM BTL As Ordered ONE (10:47)
[2024-03-14] MEDS ORDERED: BARIUM SULFATE 700 MG TABLET (E-Z-DISK) As Ordered ONE (10:47)
[2024-03-14] MEDS ORDERED: VARIBAR NECTAR 40% w/v 240ML SUSP BTL As Ordered ONE (10:47)
[2024-03-14] MEDS ORDERED: FLOM0.4C39 PO (11:38)
[2024-03-14] MEDS ORDERED: METO1TAB87 PO (11:38)
[2024-03-14] MEDS ORDERED: MIRA33506 PO (11:49)
[2024-03-14] MEDS ORDERED: SENN-186 PO (11:50)
== END 2024-03-14 12:10 | DRG 522 ==
LOC: M ED 22:25 → EDBD 22:25 → M ED INP 22:26 → OBSVTOIN 23:49 → M PCU 03-09 21:47 → M MS4PR 03-12 12:08 → M MS5PR 03-13 14:12
PROVIDERS: ADMIT Family Medicine; ATTEND Student in an Organized Health Care Education/Training Program
PROC: 0SRS0J9 Replacement of Left Hip Joint, Femoral Surface with Synthetic Substitute, Cemented, Open Approach (ICD-10-PCS; principal; 2024-03-10 11:00)
DX: S72.22XA Displaced subtrochanteric fracture of left femur, initial encounter for closed fracture (principal); I16.9 Hypertensive crisis, unspecified; J98.11 Atelectasis; N17.9 Acute kidney failure, unspecified; I12.9 Hypertensive chronic kidney disease with stage 1 through stage 4 chronic kidney disease, or unspecified chronic kidney disease; J44.9 Chronic obstructive pulmonary disease, unspecified; I48.91 Unspecified atrial fibrillation; F32.A Depression, unspecified; N40.0 Benign prostatic hyperplasia without lower urinary tract symptoms; K21.9 Gastro-esophageal reflux disease without esophagitis; N18.9 Chronic kidney disease, unspecified; R31.9 Hematuria, unspecified; Z86.73 Personal history of transient ischemic attack (TIA), and cerebral infarction without residual deficits; D72.829 Elevated white blood cell count, unspecified; E87.5 Hyperkalemia; G62.9 Polyneuropathy, unspecified; I69.321 Dysphasia following cerebral infarction; Z79.899 Other long term (current) drug therapy; Z79.82 Long term (current) use of aspirin; Z79.52 Long term (current) use of systemic steroids; Z88.2 Allergy status to sulfonamides; Z88.5 Allergy status to narcotic agent; Z88.8 Allergy status to other drugs, medicaments and biological substances; W00.0XXA Fall on same level due to ice and snow, initial encounter; Y92.009 Unspecified place in unspecified non-institutional (private) residence as the place of occurrence of the external cause

== ENCOUNTER → 2024-03-15 | Outpatient (REF) ==
[~2024-03-15] MED LIST changes: +AMLO1TAB24 PO; +CLONI1TA PO; +FLOM0.4C39 PO; +IPRA2IN INH; +METO1TAB87 PO; +MULT-6 PO; +SENN-186 PO; +VESI10TA2 PO
[2024-03-15 08:16] LABS: HEMATOCRIT 36.1 % (42.0-52.0); MEAN CORPUSCULAR HEMOGLOBIN 28.4 pg (27.0-33.0); MEAN CORPUSCULAR HGB CONC 30.5 g/dl (32.0-36.5); PLATELET COUNT, AUTOMATED 163 10^3/uL (150-450); RED BLOOD COUNT 3.88 10^6/uL (4.30-6.10); WHITE BLOOD COUNT 8.8 10^3/uL (4.0-10.0)
[2024-03-15 08:56] LABS: BLOOD UREA NITROGEN 38 MG/DL (9-23); CARBON DIOXIDE LEVEL 30 MMOL/L (20-31); CHLORIDE LEVEL 107 MMOL/L (98-107); CREATININE FOR GFR 1.05 MG/DL (0.70-1.30); GLOMERULAR FILTRATION RATE > 60.0 (>35); GLUCOSE, FASTING 110 MG/DL (74-106); POTASSIUM SERUM 4.6 MMOL/L (3.5-5.1); SODIUM LEVEL 147 MMOL/L (136-145)
== END ==
PROVIDERS: ATTEND Internal Medicine
DX: Z79.899 Other long term (current) drug therapy (principal)

== ENCOUNTER → 2024-03-26 | Outpatient (REF) ==
[~2024-03-26] MED LIST changes: +BISA10SU4 PR; +FLEEENE12 PR; +MAGN400O57 PO; +MIRA3350 PO
[2024-03-26 14:08] LABS: BASO % 0.1 % (0.0-1.0); EOS # 0.1 10^3/uL (0.0-0.5); EOS % 1.9 % (0.0-3.0); HEMATOCRIT 36.7 % (42.0-52.0); HEMOGLOBIN 11.1 g/dl (13.5-17.5); LYMPH # 0.7 10^3/uL (1.5-5.0); LYMPH % 10.4 % (24.0-44.0); MEAN CORPUSCULAR HEMOGLOBIN 28.3 pg (27.0-33.0); MEAN CORPUSCULAR HGB CONC 30.2 g/dl (32.0-36.5); MEAN CORPUSCULAR VOLUME 93.6 fl (80.0-96.0); MONO # 0.5 10^3/uL (0.0-0.8); MONO % 7.7 % (2.0-8.0); NEUTROPHILS # 5.5 10^3/uL (1.5-8.5); NEUTROPHILS % 79.5 % (36.0-66.0); PLATELET COUNT, AUTOMATED 236 10^3/uL (150-450); RED BLOOD COUNT 3.92 10^6/uL (4.30-6.10); WHITE BLOOD COUNT 6.9 10^3/uL (4.0-10.0)
[2024-03-26 14:30] LABS: BLOOD UREA NITROGEN 15 MG/DL (9-23); CALCIUM LEVEL 9.2 MG/DL (8.3-10.6); CARBON DIOXIDE LEVEL 29 MMOL/L (20-31); CHLORIDE LEVEL 104 MMOL/L (98-107); CREATININE FOR GFR 1.06 MG/DL (0.70-1.30); GLOMERULAR FILTRATION RATE > 60.0 (>35); GLUCOSE, FASTING 112 MG/DL (74-106); POTASSIUM SERUM 4.4 MMOL/L (3.5-5.1); SODIUM LEVEL 141 MMOL/L (136-145)
== END ==
PROVIDERS: ATTEND Physician Assistant
DX: R41.82 Altered mental status, unspecified (principal)

== ENCOUNTER → 2024-03-26 | Outpatient (REF) | PROVIDERS: ATTEND Internal Medicine | DX: R05.9 Cough, unspecified (principal) ==

== ENCOUNTER 2024-03-27 14:00 | Inpatient (IN) | payer MEDICARE, MEDICAID ==
[~2024-03-27] VITALS: Ht 175.3 cm; Wt 89.6 kg
[~2024-03-27 14:00] MED LIST changes: -BISA10SU4 PR; -FLEEENE12 PR; -MAGN400O57 PO; -MIRA3350 PO
[2024-03-27] MEDS ORDERED: MAGN400O57 PO (14:48)
[2024-03-27] MEDS ORDERED: BISA10SU4 PR (14:48)
[2024-03-27] MEDS ORDERED: MIRA3350 PO (14:48)
[2024-03-27] MEDS ORDERED: FLEEENE12 PR (14:48)
[2024-03-27] MEDS: NS 500 ML IV ONE (14:57)
[2024-03-27] MEDS ORDERED: SENN-186 PO (15:01)
[2024-03-27] MEDS ORDERED: METO1TAB87 PO (15:01)
[2024-03-27] MEDS ORDERED: FLOM0.4C39 PO (15:01)
[2024-03-27 15:02] LABS: VENOUS BASE EXCESS 2.7 (-2.0-2.0); VENOUS HCO3 29.4 MMOL/L (23.0-27.0); VENOUS O2 SATURATION 57.4 % (60.0-80.0); VENOUS PARTIAL PRESSURE CO2 55.3 mmHg (38.0-50.0); VENOUS PARTIAL PRESSURE O2 32.4 mmHg (30.0-50.0); VENOUS PH 7.344 UNITS (7.330-7.430); VENOUS TOTAL CO2 31.1 MMOL/L (24.0-28.0)
[2024-03-27] MEDS ORDERED: HOME MED LIST COMPLETE! XX SCH (15:05)
[2024-03-27 15:12] LABS: BASO % 0.3 % (0.0-1.0); EOS # 0.1 10^3/uL (0.0-0.5); EOS % 1.8 % (0.0-3.0); HEMOGLOBIN 11.1 g/dl (13.5-17.5); LYMPH # 0.7 10^3/uL (1.5-5.0); LYMPH % 12.1 % (24.0-44.0); MEAN CORPUSCULAR HEMOGLOBIN 28.9 pg (27.0-33.0); MEAN CORPUSCULAR HGB CONC 30.8 g/dl (32.0-36.5); MEAN CORPUSCULAR VOLUME 93.8 fl (80.0-96.0); MONO # 0.5 10^3/uL (0.0-0.8); MONO % 8.5 % (2.0-8.0); NEUTROPHILS # 4.7 10^3/uL (1.5-8.5); NEUTROPHILS % 76.8 % (36.0-66.0); PLATELET COUNT, AUTOMATED 206 10^3/uL (150-450); RED BLOOD COUNT 3.84 10^6/uL (4.30-6.10); WHITE BLOOD COUNT 6.1 10^3/uL (4.0-10.0)
[2024-03-27] MEDS ORDERED: ISOVUE-370 76% 100ML VIAL As Ordered ONE (15:12)
[2024-03-27 15:39] LABS: ETHYL ALCOHOL (ETHANOL) < 0.003 % (0.000-0.010)
[2024-03-27 15:40] LABS: CPK CREATINE PHOSPHOKINASE 34 U/L (46-171)
[2024-03-27 15:41] LABS: ALKALINE PHOSPHATASE 102 U/L (40-129); ALT/SGPT 21 U/L (7.0-40); AST/SGOT 27 U/L (<34); BILIRUBIN,DIRECT 0.2 MG/DL (<0.4); BILIRUBIN,TOTAL 0.6 MG/DL (0.3-1.2); BLOOD UREA NITROGEN 17 MG/DL (9-23); CALCIUM LEVEL 8.8 MG/DL (8.3-10.6); CARBON DIOXIDE LEVEL 32 MMOL/L (20-31); CHLORIDE LEVEL 104 MMOL/L (98-107); CK-MB VALUE MASS < 1.0 NG/ML (<3.6); CREATININE FOR GFR 1.27 MG/DL (0.70-1.30); GLOMERULAR FILTRATION RATE 57.5 (>35); GLUCOSE, FASTING 101 MG/DL (74-106); MB/CK RELATIVE INDEX 2.94 (< OR =4); POTASSIUM SERUM 4.4 MMOL/L (3.5-5.1); SALICYLATE LEVEL < 3.0 MG/DL (<30); SODIUM LEVEL 142 MMOL/L (136-145); TOTAL PROTEIN 5.9 G/DL (5.7-8.2)
[2024-03-27 15:42] LABS: THYROID STIMULATING HORMONE 0.831 uIU/ML (0.55-4.78)
[2024-03-27 16:32] LABS: PROTEIN, URINE MANUAL REFLEX 1+ mg/dL (NEGATIVE)
[2024-03-27 16:33] LABS: KETONE, URINE MANUAL REFLEX NEGATIVE (NEGATIVE); NITRITE, URINE MANUAL RFX NEGATIVE (NEGATIVE); UROBILINOGEN, UA MANUAL REFLEX NORMAL (NORMAL)
[2024-03-27 16:52] LABS: AMPHETAMINES LEVEL URINE NEGATIVE (NEGATIVE); BARBITURATES URINE NEGATIVE (NEGATIVE); BENZODIAZEPINES URINE NEGATIVE (NEGATIVE); CANNABINOIDS URINE NEGATIVE (NEGATIVE); COCAINE METABOLITE URINE NEGATIVE (NEGATIVE); METHADONE URINE NEGATIVE (NEGATIVE); OPIATES URINE NEGATIVE (NEGATIVE); PHENCYCLIDINE URINE NEGATIVE (NEGATIVE)
[2024-03-27 17:15] LABS: HYALINE CAST, URINE RFX 15-20 /lpf (0-1); MICROSCOPIC EXAM RFX PERFORMED; MUCUS, URINE REFLEX MOD AMOUNT (NEGATIVE); RBC, URINE MAN REFLEX 0-1 /hpf (0-3); SQUAMOUS EPITHELIAL URINE RFX SMALL AMOUNT /hpf (SMALL AMT); WBC, URINE MAN RFX NONE SEEN /hpf (0-3)
[2024-03-27 18:09] LABS: CK-MB VALUE MASS < 1.0 NG/ML (<3.6)
[2024-03-27 18:11] LABS: CPK CREATINE PHOSPHOKINASE 22 U/L (46-171); MB/CK RELATIVE INDEX 4.54 (< OR =4)
[2024-03-27] MEDS: SYMBICORT 160/4.5MCG INHALER 6GM INH SCH (20:00)
[2024-03-27] MEDS ORDERED: IPRATROPIUM 0.02% SOLN 0.5MG 2.5ML NEB INH PRN (20:50)
[2024-03-27] MEDS ORDERED: MOM 30ML SUSPENSION UDC PO PRN (20:50)
[2024-03-27] MEDS ORDERED: CLOPIDOGREL 300 MG TAB (PLAVIX) PO STA (22:24)
[2024-03-27] MEDS: ATORVASTATIN 20 MG TAB PO SCH (22:42)
[2024-03-27] MEDS: GABAPENTIN 100 MG CAP PO SCH (22:42)
[2024-03-27] MEDS: POLYVINYL ALCOHOL OPHTH SOLN 15ML (LIQUITEARS) OU SCH (22:42)
[2024-03-27] MEDS: SENNA 8.6 MG TAB (SENOKOT) PO SCH (22:42)
[2024-03-27] MEDS: FAMOTIDINE 20 MG TAB PO SCH (22:42)
[2024-03-27] MEDS: APIXABAN 2.5 MG TAB (ELIQUIS) PO SCH (22:42)
[2024-03-27] MEDS: EZETIMIBE 10MG TABLET (ZETIA) PO SCH (22:42)
[2024-03-27] MEDS: ASPIRIN 325 MG TAB PO ONE (22:44)
[2024-03-28] MEDS: LABETALOL 100MG/20ML VIAL IV PRN (01:01)
[2024-03-28] MEDS: NS 500 ML IV ONE (05:18)
[2024-03-28 06:54] LABS: HEMATOCRIT 33.9 % (42.0-52.0); HEMOGLOBIN 10.5 g/dl (13.5-17.5); MEAN CORPUSCULAR HEMOGLOBIN 28.8 pg (27.0-33.0); MEAN CORPUSCULAR VOLUME 92.9 fl (80.0-96.0); PLATELET COUNT, AUTOMATED 193 10^3/uL (150-450); RED BLOOD COUNT 3.65 10^6/uL (4.30-6.10); WHITE BLOOD COUNT 4.8 10^3/uL (4.0-10.0)
[2024-03-28 07:50] LABS: ALBUMIN 2.8 G/DL (3.2-5.2); ALKALINE PHOSPHATASE 95 U/L (40-129); ALT/SGPT 21 U/L (7.0-40); AST/SGOT 25 U/L (<34); BILIRUBIN,TOTAL 0.7 MG/DL (0.3-1.2); BLOOD UREA NITROGEN 13 MG/DL (9-23); CALCIUM LEVEL 8.7 MG/DL (8.3-10.6); CARBON DIOXIDE LEVEL 30 MMOL/L (20-31); CHLORIDE LEVEL 108 MMOL/L (98-107); CREATININE FOR GFR 1.03 MG/DL (0.70-1.30); GLOMERULAR FILTRATION RATE > 60.0 (>35); GLUCOSE, FASTING 94 MG/DL (74-106); POTASSIUM SERUM 4.4 MMOL/L (3.5-5.1); SODIUM LEVEL 146 MMOL/L (136-145); TOTAL PROTEIN 5.5 G/DL (5.7-8.2)
[2024-03-28] MEDS: hydrALAZINE 20MG/ML 1ML VIAL IV PRN (08:19)
[2024-03-28] MEDS: ASPIRIN 81MG ENTERIC TABLET PO SCH (08:19)
[2024-03-28] MEDS: MIRALAX *UNIT DOSE* 17GM PACKET PO SCH (08:19)
[2024-03-28] MEDS: SOLIFENACIN 5 MG TAB PO SCH (09:00)
[2024-03-28 09:14] LABS: CHOLESTEROL LEVEL 101 MG/DL (<200); CHOLESTEROL RISK RATIO 3.69 (<5); HDL CHOLESTEROL 27.3 MG/DL (>40); LDL CHOLESTEROL 51.3 MG/DL (<100); NON-HDL-C 73.7 MG/DL; TRIGLYCERIDES LEVEL 112 MG/DL (<150)
[2024-03-28 09:56] LABS: HEMOGLOBIN A1c 5.2 % (4.0-6.0)
[2024-03-28] MEDS ORDERED: BISACODYL 10MG SUPP PR PRN (10:20)
[2024-03-28] MEDS: TIOTROPIUM INHALER/CAPSULE (SPIRIVA) INH SCH (11:58)
[2024-03-28] MEDS ORDERED: PROHANCE 279.3MG/ML 5ML VIAL As Ordered ONE (12:05)
[2024-03-28] MEDS ORDERED: PROHANCE 279.3MG/ML 15ML VIAL As Ordered ONE (12:06)
[2024-03-28] MEDS: FINASTERIDE 5MG TAB PO SCH (12:43)
[2024-03-28] MEDS: TAMSULOSIN 0.4 MG CAP PO SCH (12:43)
[2024-03-28 18:26] VITALS: BP 184/110; TEMP 99.4; O2SAT 95
[2024-03-28] MEDS: RIVAROXABAN 15MG TAB (XARELTO) PO SCH (18:59)
[2024-03-28 19:31] VITALS: BP 210/113; TEMP 98.5; O2SAT 97
[2024-03-28 19:34] VITALS: BP 193/106
[2024-03-28] MEDS: METOPROLOL TART 25 MG TABLET PO SCH (20:25)
[2024-03-28] MEDS: LABETALOL 100MG/20ML VIAL IV ONE (20:35)
[2024-03-28 21:37] VITALS: BP 182/107; TEMP 98.3; O2SAT 95
[2024-03-29] VITALS (8 sets, daily range): BP systolic 147–192; BP diastolic 74–104; TEMP 97.1–98.6; O2SAT 94–96
[2024-03-29] MEDS: ENOXAPARIN 100MG/1ML SYRINGE (J1650 PER 10MG) SC SCH (05:59)
[2024-03-29 07:08] LABS: HEMATOCRIT 35.5 % (42.0-52.0); HEMOGLOBIN 10.9 g/dl (13.5-17.5); MEAN CORPUSCULAR HEMOGLOBIN 28.3 pg (27.0-33.0); MEAN CORPUSCULAR HGB CONC 30.7 g/dl (32.0-36.5); MEAN CORPUSCULAR VOLUME 92.2 fl (80.0-96.0); PLATELET COUNT, AUTOMATED 195 10^3/uL (150-450); RED BLOOD COUNT 3.85 10^6/uL (4.30-6.10); WHITE BLOOD COUNT 5.8 10^3/uL (4.0-10.0)
[2024-03-29 07:41] LABS: ALKALINE PHOSPHATASE 102 U/L (40-129); ALT/SGPT 19 U/L (7.0-40); AST/SGOT 28 U/L (<34); BLOOD UREA NITROGEN 14 MG/DL (9-23); CALCIUM LEVEL 8.8 MG/DL (8.3-10.6); CARBON DIOXIDE LEVEL 29 MMOL/L (20-31); CHLORIDE LEVEL 106 MMOL/L (98-107); CREATININE FOR GFR 1.03 MG/DL (0.70-1.30); GLOMERULAR FILTRATION RATE > 60.0 (>35); GLUCOSE, FASTING 85 MG/DL (74-106); POTASSIUM SERUM 4.1 MMOL/L (3.5-5.1); SODIUM LEVEL 142 MMOL/L (136-145); TOTAL PROTEIN 5.6 G/DL (5.7-8.2)
[2024-03-29] MEDS: hydrALAZINE 20MG/ML 1ML VIAL IV PRN (08:39)
[2024-03-29] MEDS: METOPROLOL TART 25 MG TABLET PO SCH (16:17)
[2024-03-30 03:17] VITALS: BP 164/96; TEMP 97.1; O2SAT 95
[2024-03-30 05:48] LABS: HEMATOCRIT 35.4 % (42.0-52.0); HEMOGLOBIN 10.9 g/dl (13.5-17.5); MEAN CORPUSCULAR HEMOGLOBIN 28.5 pg (27.0-33.0); MEAN CORPUSCULAR HGB CONC 30.8 g/dl (32.0-36.5); MEAN CORPUSCULAR VOLUME 92.7 fl (80.0-96.0); PLATELET COUNT, AUTOMATED 183 10^3/uL (150-450); RED BLOOD COUNT 3.82 10^6/uL (4.30-6.10); WHITE BLOOD COUNT 5.1 10^3/uL (4.0-10.0)
[2024-03-30 06:10] LABS: ALKALINE PHOSPHATASE 101 U/L (40-129); ALT/SGPT 17 U/L (7.0-40); AST/SGOT 26 U/L (<34); BILIRUBIN,TOTAL 0.9 MG/DL (0.3-1.2); BLOOD UREA NITROGEN 15 MG/DL (9-23); CALCIUM LEVEL 8.9 MG/DL (8.3-10.6); CARBON DIOXIDE LEVEL 28 MMOL/L (20-31); CHLORIDE LEVEL 107 MMOL/L (98-107); GLOMERULAR FILTRATION RATE > 60.0 (>35); GLUCOSE, FASTING 90 MG/DL (74-106); POTASSIUM SERUM 3.9 MMOL/L (3.5-5.1); SODIUM LEVEL 144 MMOL/L (136-145); TOTAL PROTEIN 5.6 G/DL (5.7-8.2)
[2024-03-30] MEDS ORDERED: **hydrALAZINE** 10 MG TAB PO PRN (08:00)
[2024-03-30 08:06] VITALS: BP 180/100; TEMP 98.2; O2SAT 94
[2024-03-30] MEDS ORDERED: PILL CUTTER 1 EACH XX PRN (08:10)
[2024-03-30] MEDS: COMBIVENT RESPIMAT 100-20MCG INHALER 4GM INH PRN (08:37)
[2024-03-30] MEDS: METOPROLOL TART 25 MG TABLET PO SCH (08:44)
[2024-03-30 12:09] VITALS: BP 160/83; TEMP 97.3; O2SAT 92
[2024-03-30 15:29] VITALS: BP 159/86; TEMP 98.3; O2SAT 94
[2024-03-30 19:25] VITALS: BP 154/89; TEMP 98.4; O2SAT 94
[2024-03-30 23:14] VITALS: BP 168/94; TEMP 97.2; O2SAT 93
[2024-03-31 03:14] VITALS: BP 166/92; TEMP 97.6; O2SAT 93
[2024-03-31 06:17] LABS: HEMATOCRIT 35.8 % (42.0-52.0); MEAN CORPUSCULAR HEMOGLOBIN 28.6 pg (27.0-33.0); MEAN CORPUSCULAR HGB CONC 30.7 g/dl (32.0-36.5); MEAN CORPUSCULAR VOLUME 93.2 fl (80.0-96.0); PLATELET COUNT, AUTOMATED 180 10^3/uL (150-450); RED BLOOD COUNT 3.84 10^6/uL (4.30-6.10); WHITE BLOOD COUNT 5.3 10^3/uL (4.0-10.0)
[2024-03-31 06:43] LABS: ALKALINE PHOSPHATASE 105 U/L (40-129); ALT/SGPT 16 U/L (7.0-40); AST/SGOT 27 U/L (<34); BILIRUBIN,TOTAL 0.9 MG/DL (0.3-1.2); BLOOD UREA NITROGEN 15 MG/DL (9-23); CALCIUM LEVEL 8.4 MG/DL (8.3-10.6); CARBON DIOXIDE LEVEL 27 MMOL/L (20-31); CHLORIDE LEVEL 107 MMOL/L (98-107); CREATININE FOR GFR 1.05 MG/DL (0.70-1.30); GLOMERULAR FILTRATION RATE > 60.0 (>35); GLUCOSE, FASTING 94 MG/DL (74-106); POTASSIUM SERUM 3.9 MMOL/L (3.5-5.1); SODIUM LEVEL 142 MMOL/L (136-145); TOTAL PROTEIN 5.5 G/DL (5.7-8.2)
[2024-03-31 08:00] VITALS: BP 171/95; TEMP 98.2; O2SAT 93
[2024-03-31 12:17] VITALS: BP 158/87; TEMP 97.3; O2SAT 95
[2024-03-31 15:32] VITALS: BP 158/89; TEMP 97.4; O2SAT 97
[2024-03-31] MEDS ORDERED: LOVE0.8I SC (17:07)
[2024-03-31] MEDS ORDERED: METO1TAB87 PO (17:07)
[2024-03-31] MEDS ORDERED: AMLO1TAB25 PO (17:07)
[2024-03-31 20:00] VITALS: BP 173/94; TEMP 97.4; O2SAT 96
[2024-04-01 07:56] LABS: HEMATOCRIT 36.7 % (42.0-52.0); HEMOGLOBIN 11.3 g/dl (13.5-17.5); MEAN CORPUSCULAR HEMOGLOBIN 28.2 pg (27.0-33.0); MEAN CORPUSCULAR HGB CONC 30.8 g/dl (32.0-36.5); MEAN CORPUSCULAR VOLUME 91.5 fl (80.0-96.0); PLATELET COUNT, AUTOMATED 177 10^3/uL (150-450); RED BLOOD COUNT 4.01 10^6/uL (4.30-6.10); WHITE BLOOD COUNT 4.9 10^3/uL (4.0-10.0)
[2024-04-01] MEDS: ACETAMINOPHEN 325 MG TAB PO PRN (08:13)
[2024-04-01 08:14] VITALS: BP 165/109
[2024-04-01 08:24] VITALS: BP 165/109; TEMP 97.1; O2SAT 98
[2024-04-01 08:51] LABS: ALBUMIN 3.1 G/DL (3.2-5.2); ALKALINE PHOSPHATASE 108 U/L (40-129); ALT/SGPT 23 U/L (7.0-40); AST/SGOT 42 U/L (<34); BLOOD UREA NITROGEN 13 MG/DL (9-23); CALCIUM LEVEL 8.8 MG/DL (8.3-10.6); CARBON DIOXIDE LEVEL 29 MMOL/L (20-31); CHLORIDE LEVEL 105 MMOL/L (98-107); CREATININE FOR GFR 1.01 MG/DL (0.70-1.30); GLOMERULAR FILTRATION RATE > 60.0 (>35); GLUCOSE, FASTING 90 MG/DL (74-106); POTASSIUM SERUM 4.4 MMOL/L (3.5-5.1); SODIUM LEVEL 141 MMOL/L (136-145); TOTAL PROTEIN 5.8 G/DL (5.7-8.2)
== END 2024-04-01 12:20 | DRG 64 ==
LOC: M ED 14:00 → M ED INP 20:46 → M PCU 03-28 18:21
PROVIDERS: ADMIT Student in an Organized Health Care Education/Training Program; ATTEND Internal Medicine
DX: I63.9 Cerebral infarction, unspecified (principal); G93.41 Metabolic encephalopathy; I69.351 Hemiplegia and hemiparesis following cerebral infarction affecting right dominant side; N40.0 Benign prostatic hyperplasia without lower urinary tract symptoms; I48.0 Paroxysmal atrial fibrillation; K21.9 Gastro-esophageal reflux disease without esophagitis; I10 Essential (primary) hypertension; G62.9 Polyneuropathy, unspecified; F32.A Depression, unspecified; J44.9 Chronic obstructive pulmonary disease, unspecified; E27.8 Other specified disorders of adrenal gland; Z96.642 Presence of left artificial hip joint; Z88.2 Allergy status to sulfonamides; Z88.8 Allergy status to other drugs, medicaments and biological substances; Z88.5 Allergy status to narcotic agent; Z79.899 Other long term (current) drug therapy; Z79.82 Long term (current) use of aspirin

== ENCOUNTER → 2024-03-28 | Outpatient (CLI) | payer MEDICARE, MEDICAID ==
[~2024-03-28] MED LIST changes: +BISA10SU4 PR; +FLEEENE12 PR; +LOVE0.8I SC; +MAGN400O57 PO; +MIRA3350 PO
== END ==
LOC: M SOG 08:29
PROVIDERS: ATTEND Physician Assistant
DX: S72.002A Fracture of unspecified part of neck of left femur, initial encounter for closed fracture (principal)

== ENCOUNTER → 2024-04-03 | Outpatient (REF) ==
[2024-04-03 09:51] LABS: HEMATOCRIT 40.7 % (42.0-52.0); HEMOGLOBIN 12.3 g/dl (13.5-17.5); MEAN CORPUSCULAR HEMOGLOBIN 27.8 pg (27.0-33.0); MEAN CORPUSCULAR HGB CONC 30.2 g/dl (32.0-36.5); MEAN CORPUSCULAR VOLUME 92.1 fl (80.0-96.0); PLATELET COUNT, AUTOMATED 200 10^3/uL (150-450); RED BLOOD COUNT 4.42 10^6/uL (4.30-6.10); WHITE BLOOD COUNT 4.9 10^3/uL (4.0-10.0)
[2024-04-03 10:36] LABS: BLOOD UREA NITROGEN 18 MG/DL (9-23); CALCIUM LEVEL 9.1 MG/DL (8.3-10.6); CARBON DIOXIDE LEVEL 26 MMOL/L (20-31); CHLORIDE LEVEL 107 MMOL/L (98-107); CREATININE FOR GFR 1.09 MG/DL (0.70-1.30); GLOMERULAR FILTRATION RATE > 60.0 (>35); GLUCOSE, FASTING 91 MG/DL (74-106); SODIUM LEVEL 144 MMOL/L (136-145)
== END ==
PROVIDERS: ATTEND Physician Assistant
DX: I10 Essential (primary) hypertension (principal)

== ENCOUNTER → 2024-04-09 | Outpatient (CLI) | payer MEDICARE, MEDICAID ==
[~2024-04-09] MED LIST changes: +APAP325T4 PO; +BARIUM SULFATE 700 MG TABLET (E-Z-DISK) As Ordered ONE; +E-Z-PAQUE 96% w/w SUSP 176GM BTL As Ordered ONE; +ENOX100I3 SC; +ENOX80IN3 SC; +METO37.5 PO; +VARIBAR NECTAR 40% w/v 240ML SUSP BTL As Ordered ONE; +VARIBAR PUDDING 40% w/v 230ML TUBE As Ordered ONE
== END ==
LOC: M RAD 11:19
PROVIDERS: ATTEND Internal Medicine
DX: J69.0 Pneumonitis due to inhalation of food and vomit (principal)

== ENCOUNTER → 2024-04-10 | Outpatient (REF) ==
[~2024-04-10] MED LIST changes: -APAP325T4 PO; -BARIUM SULFATE 700 MG TABLET (E-Z-DISK) As Ordered ONE; -E-Z-PAQUE 96% w/w SUSP 176GM BTL As Ordered ONE; -ENOX100I3 SC; -ENOX80IN3 SC; -METO37.5 PO; -VARIBAR NECTAR 40% w/v 240ML SUSP BTL As Ordered ONE; -VARIBAR PUDDING 40% w/v 230ML TUBE As Ordered ONE
[2024-04-10 09:11] LABS: HEMOGLOBIN 12.8 g/dl (13.5-17.5); MEAN CORPUSCULAR HEMOGLOBIN 28.3 pg (27.0-33.0); MEAN CORPUSCULAR HGB CONC 30.5 g/dl (32.0-36.5); MEAN CORPUSCULAR VOLUME 92.7 fl (80.0-96.0); PLATELET COUNT, AUTOMATED 208 10^3/uL (150-450); RED BLOOD COUNT 4.53 10^6/uL (4.30-6.10); WHITE BLOOD COUNT 5.7 10^3/uL (4.0-10.0)
[2024-04-10 09:42] LABS: BLOOD UREA NITROGEN 17 MG/DL (9-23); CALCIUM LEVEL 9.4 MG/DL (8.3-10.6); CARBON DIOXIDE LEVEL 30 MMOL/L (20-31); CHLORIDE LEVEL 106 MMOL/L (98-107); CREATININE FOR GFR 1.04 MG/DL (0.70-1.30); GLOMERULAR FILTRATION RATE > 60.0 (>35); GLUCOSE, FASTING 94 MG/DL (74-106); SODIUM LEVEL 143 MMOL/L (136-145)
== END ==
PROVIDERS: ATTEND Physician Assistant
DX: I10 Essential (primary) hypertension (principal)

== ENCOUNTER → 2024-04-11 | Outpatient (CLI) | payer MEDICARE, MEDICAID | LOC: M SOG 13:59 | PROVIDERS: ATTEND Orthopaedic Surgery | DX: S72.002A Fracture of unspecified part of neck of left femur, initial encounter for closed fracture (principal); W18.30XA Fall on same level, unspecified, initial encounter; Y92.009 Unspecified place in unspecified non-institutional (private) residence as the place of occurrence of the external cause ==

== ENCOUNTER 2024-04-23 09:36 | Emergency (ER) | payer MEDICARE, MEDICAID ==
[~2024-04-23] VITALS: Ht 175.3 cm; Wt 85.1 kg
[2024-04-23 10:02] LABS: VENOUS HCO3 27.4 MMOL/L (23.0-27.0); VENOUS O2 SATURATION 74.7 % (60.0-80.0); VENOUS PARTIAL PRESSURE CO2 45.8 mmHg (38.0-50.0); VENOUS PARTIAL PRESSURE O2 39.9 mmHg (30.0-50.0); VENOUS PH 7.394 UNITS (7.330-7.430); VENOUS STANDARD HCO3 25.7 MMOL/L; VENOUS TOTAL CO2 28.8 MMOL/L (24.0-28.0)
[2024-04-23 10:18] LABS: BASO % 0.4 % (0.0-1.0); EOS % 0.2 % (0.0-3.0); HEMATOCRIT 37.3 % (42.0-52.0); HEMOGLOBIN 11.5 g/dl (13.5-17.5); LYMPH # 0.7 10^3/uL (1.5-5.0); LYMPH % 7.4 % (24.0-44.0); MEAN CORPUSCULAR HEMOGLOBIN 27.8 pg (27.0-33.0); MEAN CORPUSCULAR HGB CONC 30.8 g/dl (32.0-36.5); MEAN CORPUSCULAR VOLUME 90.3 fl (80.0-96.0); MONO # 0.7 10^3/uL (0.0-0.8); MONO % 7.6 % (2.0-8.0); NEUTROPHILS # 8.1 10^3/uL (1.5-8.5); PLATELET COUNT, AUTOMATED 246 10^3/uL (150-450); RED BLOOD COUNT 4.13 10^6/uL (4.30-6.10); WHITE BLOOD COUNT 9.7 10^3/uL (4.0-10.0)
[2024-04-23 10:41] LABS: ALBUMIN 3.4 G/DL (3.2-5.2); BILIRUBIN,DIRECT 0.2 MG/DL (<0.4); BILIRUBIN,TOTAL 0.6 MG/DL (0.3-1.2); CALCIUM LEVEL 9.8 MG/DL (8.3-10.6); CREATININE FOR GFR 1.68 MG/DL (0.70-1.30); GLOMERULAR FILTRATION RATE 41.6 (>35); POTASSIUM SERUM 4.7 MMOL/L (3.5-5.1); TOTAL PROTEIN 6.4 G/DL (5.7-8.2)
[2024-04-23 10:44] LABS: THYROID STIMULATING HORMONE 0.704 uIU/ML (0.55-4.78)
[2024-04-23] MEDS ORDERED: ENOX100I3 SC (11:02)
[2024-04-23] MEDS ORDERED: METO37.5 PO (11:02)
[2024-04-23] MEDS ORDERED: APAP325T4 PO (11:02)
[2024-04-23] MEDS ORDERED: ENOX80IN3 SC (11:02)
[2024-04-23] MEDS ORDERED: HOME MED LIST COMPLETE! XX SCH (11:05)
[2024-04-23] MEDS: NS (Normal Saline) 0.9% 1,000 ML IV ONE (13:25)
[2024-04-23 16:08] LABS: KETONE, URINE AUTO RFX TRACE mg/dL (NEGATIVE); LEUKOCYTE ESTERASE UR AUTO RFX NEGATIVE (NEGATIVE); MUCUS, URINE RFX SMALL (NEGATIVE); NITRITE, URINE AUTO RFX NEGATIVE (NEGATIVE); RBC, URINE AUTO RFX 8 /HPF (0-3); SQUAM EPITHELIAL CELL UR AURFX 0 /HPF (0-6); WBC, URINE AUTO RFX 0 /HPF (0-3)
[2024-04-23 16:49] LABS: CREATININE,RANDOM URINE 274.4 MG/DL
[2024-04-23 18:31] VITALS: BP 161/82; TEMP 99.1; O2SAT 96
== END 2024-04-23 18:39 | disposition home or self-care (01) ==
LOC: EDBD 09:36 → M ED 09:36
DX: R41.82 Altered mental status, unspecified (principal); N17.9 Acute kidney failure, unspecified; M79.672 Pain in left foot; R00.0 Tachycardia, unspecified; I10 Essential (primary) hypertension; I48.0 Paroxysmal atrial fibrillation; J44.9 Chronic obstructive pulmonary disease, unspecified; K21.9 Gastro-esophageal reflux disease without esophagitis; N40.0 Benign prostatic hyperplasia without lower urinary tract symptoms; F32.A Depression, unspecified; Z86.79 Personal history of other diseases of the circulatory system; Z88.2 Allergy status to sulfonamides; Z88.5 Allergy status to narcotic agent; Z79.82 Long term (current) use of aspirin; Z79.02 Long term (current) use of antithrombotics/antiplatelets; Z79.899 Other long term (current) drug therapy; Z79.52 Long term (current) use of systemic steroids

== ENCOUNTER → 2024-04-25 | Outpatient (REF) ==
[~2024-04-25] MED LIST changes: +APAP325T4 PO; +ENOX100I3 SC; +ENOX80IN3 SC; +METO37.5 PO
== END ==
PROVIDERS: ATTEND Physician Assistant
DX: Z53.8 Procedure and treatment not carried out for other reasons (principal)

== ENCOUNTER → 2024-04-25 | Outpatient (REF) ==
[2024-04-25 18:00] LABS: APPEARANCE, URINE CLEAR (CLEAR); BACTERIA, URINE AUTO NEGATIVE (NEGATIVE); BILIRUBIN, URINE AUTO NEGATIVE (NEGATIVE); BLOOD, URINE BLOOD NEGATIVE (NEGATIVE); CALCIUM OXALATE CRYSTALS SMALL; COLOR, URINE AMBER (YELLOW); GLUCOSE, URINE (UA) AUTO NEGATIVE (NEGATIVE); KETONE, URINE AUTO TRACE mg/dL (NEGATIVE); LEUKOCYTE ESTERASE, URINE AUTO NEGATIVE (NEGATIVE); MUCUS, URINE SMALL (NEGATIVE); NITRITE, URINE AUTO NEGATIVE (NEGATIVE); PROTEIN, URINE AUTO 1+ mg/dL (NEGATIVE); RBC, URINE AUTO 3 /HPF (0-3); SPECIFIC GRAVITY URINE AUTO 1.029 (1.002-1.035); SQUAMOUS EPITHELIAL CELL UR AU 0 /HPF (0-6); UROBILINOGEN, URINE AUTO 0.2 mg/dL (0.0-2.0); WBC, URINE AUTO 1 /HPF (0-3)
== END ==
PROVIDERS: ATTEND Physician Assistant
DX: N39.0 Urinary tract infection, site not specified (principal)